=== PATIENT | female | born 1955 | race African-American/Black ===

== ENCOUNTER 2018-07-28 08:07 | Emergency (ER) | payer SELFPAY ==
[2018-07-28 08:15] VITALS: BP 156/97; PULSE 97; TEMP 98.3; BMI 31.6
--- NOTE | 2018-07-28 08:44 | PDOC ---
History of Present Illness - General Chief Complaint: Rash Stated Complaint: RING WORM Time Seen by Provider: 07/28/18 08:09 Past History - Past Medical History Allergies/Adverse Reactions: Allergies Allergy/AdvReac Type Severity Reaction Status Date / Time No Known Allergies Allergy Verified 07/28/18 08:08 Home Medications: Ambulatory Orders Terbinafine HCl 250 mg PO DAILY #14 tablet 07/28/18 Triamcinolone 0.1% Ointment [Aristocort 0.1% Ointment -] 1 applic TP BID #1 tube 07/28/18 COPD: No - Suicide/Smoking/Psychosocial Hx Smoking History: Never smoked Have you smoked in the past 12 months: No Information on smoking cessation initiated: No Hx Alcohol Use: No Drug/Substance Use Hx: No Substance Use Type: None *Physical Exam - Vital Signs Last Vital Signs Temp Pulse Resp BP Pulse Ox 98.3 F 97 H 20 156/97 100 07/28/18 08:07 07/28/18 08:07 07/28/18 08:07 07/28/18 08:07 07/28/18 08:07 *DC/Admit/Observation/Transfer Diagnosis at time of Disposition: Ringworm Contact dermatitis Qualifiers: Contact dermatitis type: unspecified Contact dermatitis trigger: other chemical product Qualified Code(s): L25.3 - Unspecified contact dermatitis due to other chemical products - Discharge Dispostion Disposition: HOME - Referrals Referrals: Lenny Ayala [Non Staff, Medical] - - Patient Instructions Printed Discharge Instructions: DI for Contact Dermatitis, DI for Ringworm Additional Instructions: Benadryl x 3 /day If no improvement see the General Cargo Clerk - Post Discharge Activity
== END 2018-07-28 09:00 | disposition home or self-care (01) ==
LOC: FER 08:07
DX: B35.9 Dermatophytosis, unspecified (principal); L25.3 Unspecified contact dermatitis due to other chemical products
CPT/HCPCS: 99281-25